=== PATIENT | female | born 1980 | race Caucasian/White ===

== ENCOUNTER 2020-05-18 10:48 | Emergency (ER) | payer OTHER, SELFPAY ==
[2020-05-18 10:54] VITALS: BP 160/72; PULSE 120; O2SAT 99
[2020-05-18 11:01] VITALS: BP 143/89; PULSE 128; RESP 20; O2SAT 98; BMI 27.4
--- NOTE | 2020-05-18 11:16 | ED.GENADULT ---
HPI - General Adult General Chief complaint: ETOH/Substance Use Stated complaint: ETOH USE Time Seen by Provider: 05/18/20 11:04 Source: patient Mode of arrival: EMS Limitations: no limitations History of Present Illness HPI narrative: 39-year-old female who presents the emergency department for evaluation of alcohol intoxication. The patient admits to drinking vodka. She states that she was in the [place] with her [place]. Apparently, her friend was concerned about her alcohol intoxication called the ambulance. The patient did not want to come to the hospital for evaluation however EMS was able to convince her to come to be seen in the emergency department. Here in the emergency department the patient does have a strong odor of alcohol on her breath, she is awake and alert and answers all questions appropriately. She denies being suicidal or homicidal. She states that she had drinks alcohol and she does not believe that she has a problem with alcohol abuse. She states that she is not interested in talking to a counselor at this time. She denies any other drug use. She denied fever, chills, chest pain, shortness of breath, abdominal pain, nausea, vomiting. Related Data Allergies Allergy/AdvReac Type Severity Reaction Status Date / Time No Known Allergies Allergy Unverified 10/26/19 16:50 Review of Systems Review of Systems: Yes all other systems are reviewed and are negative [facility] Past Medical History [facility] Narrative: The patient has history of hypertension but she states she is noncompliant with her medications. She states she occasionally smokes cigarettes. She states she does drink alcohol on a regular basis but does not believe that she has a problem with alcohol use. She does use marijuana frequently in an edible version. She denies injection drug use. Medical History (Updated 05/18/20 @ 11:27 by Bryan Woods MD) HTN (hypertension) Social History Social History Advance Directives: Yes Advance Directives Information Provided: No Advance Directives on File: No Physical Exam Vital Signs: Vital Signs: Last Vital Signs Pulse 128 H 05/18/20 11:01 Resp 20 05/18/20 11:01 BP 143/89 H 05/18/20 11:01 Pulse Ox 98 05/18/20 11:01 Body Mass Index 27.4 Const: Other: Patient has a strong odor of alcohol on her breath, oriented to person, place and time, pleasant and cooperative, appears intoxicated General: healthy appearing Limitations: no limitations HENMT: Head: Yes normal to inspection, Yes normocephalic and Yes atraumatic Ears: external ears normal General nose exam: Normal external nose present Face and sinus: Yes normal facial exam Mouth: Normal oral and palatal mucosa present Throat: Yes posterior oropharynx normal Eyes: Periorbital: periorbital findings normal Eyelids: Yes eyelids normal Conjunctivae: conjunctivae normal Sclerae: sclerae normal Corneas: corneas normal Pupils: Equal, round and reactive pupils present Direct Ophthalmoscopy: normal light reflex Neck: Neck: Yes full ROM, Yes no lymphadenopathy, Yes no meningeal signs, Yes trachea midline and Yes supple Chest: Chest palpation & inspection: normal inspection of the chest and normal palpation of entire chest wall Resp: Effort & Inspection: normal respiratory effort and able to speak in complete sentences Auscultation: clear to auscultation bilaterally Cardio: Rate: regular rate Rhythm: regular rhythm Heart sounds: S1 normal heart sound present, S2 normal heart sound present and no murmurs GI: Inspection: Yes normal to inspection Palpation (GI): Soft to palpation, nontender, no guarding, not rigid and No hepatosplenomegaly present : General: Yes no CVA tenderness Back/Spine/Pelvis: Back: no CVA tenderness Cervical Spine: normal cervical lordosis Thoracic/Lumbar Spine: thoracic and lumbar spine normal to inspection Skin: Lesions: no lesions Rashes: no rashes Wounds: no wounds Neuro: General: no meningeal signs Cranial nerves: Yes CN's II-XII intact bilaterally and Yes Equal, round and reactive pupils present Cognition (Neuro): normal cognition Motor exam (neuro): 5/5 motor strength present throughout Extrem: General: Yes normal to inspection and Yes full ROM Psych: Appearance: well kempt Mental Status: mental status grossly normal Speech and movement: Normal speech and movement present Affect: Other affect and mood findings present (Appears intoxicated) Attitude: cooperative Thought process: Normal thought process present Thought content: Normal thought content present Insight: Good insight present (Psych) Judgement: Good judgement present (Psych) Course Course Course Narrative: 39-year-old female brought to the emergency department for evaluation of alcohol intoxication. The patient does admit to drinking alcohol. She denies being suicidal or homicidal. The patient states that she is not interested in talking to a crisis counselor or a public speaking coach. The patient's examination is consistent with alcohol intoxication. At this time, the patient is refusing further workup therefore she will be discharged home. She was given verbal and printed instructions on alcohol use disorder alcohol intoxication. She was advised to discuss her alcohol use with her PCP and return to emergency department if she wanted to get any help with her alcohol use disorder. Discharge Plan Discharge Clinical Impression: Acute alcohol intoxication Qualifiers: Complication of substance-induced condition: uncomplicated Qualified Code(s): F10.920 - Alcohol use, unspecified with intoxication, uncomplicated Patient Disposition: Home, Self-Care Instructions: Alcohol Use Disorder (ED), Alcohol Intoxication (ED) Additional Instructions: Your exam is consistent with alcohol intoxication. You told me that you are not suicidal, homicidal, and that you do not want to hurt yourself or others. I offered you crisis counseling and counseling with our alcohol public speaking coach however you do not want this at this time, therefore you will be discharged home. If you change your mind and want any help please return to the emergency department and we can get our crisis team to see you. Follow-up with your doctor in 2 days. Please return to the emergency department if your symptoms get worse or if you develop any symptoms that are concerning to you.
--- NOTE | 2020-05-18 11:34 | PC.NURSE ---
pt is calm, cooperative and ambulatory with steady gait. She denies SI, denies HI. She states she does not need or want to talk to a golf coach. Pt ambulatory in hallway, and on exit. She is discharged home.
== END 2020-05-18 11:36 | disposition home or self-care (01) ==
PROVIDERS: Emergency Provider Emergency Medicine Emergency Medical Services
DX: F10.920 Alcohol use, unspecified with intoxication, uncomplicated (principal); Y90.9 Presence of alcohol in blood, level not specified; I10 Essential (primary) hypertension; Z91.14 Patient's other noncompliance with medication regimen
CPT/HCPCS: 99283